=== PATIENT | female | born 1970 | race Caucasian/White ===

== ENCOUNTER 2018-10-07 13:15 | Emergency (ER) | payer OTHER ==
[~2018-10-07] VITALS: Ht 160 cm; Wt 95.3 kg
[2018-10-07] MEDS ORDERED: SINGULAIR 10MG10 MG PO (13:30)
[2018-10-07] MEDS ORDERED: COZAAR50 MG PO (13:30)
== END 2018-10-07 18:07 | disposition home or self-care (01) ==
LOC: ER 13:15
DX: B34.9 Viral infection, unspecified (principal); I10 Essential (primary) hypertension